=== PATIENT | male | born 1960 | race Caucasian/White ===

== ENCOUNTER 2016-07-30 13:23 | Emergency (ER) | payer MEDICAID, OTHER ==
[~2016-07-30] VITALS: Ht 162.6 cm; Wt 74.4 kg
[~2016-07-30 13:23] MED LIST: ALBU18HF2 IH; AMLO10TA2 PO; ASPI81TA2 PO; ATOR40TA PO; BLOO-697 IN; BUSP15TA3 PO; CAPS30CR TP; CARV12.52 PO; CHLO25TA2 PO; CITA40TA11 PO; CLON0.1T PO; CLOP75TA2 PO; COLC0.6C3 PO; DOCU-270 PO; DOXA2TAB2 PO; FERR325T28 GT; FURO-145 PO; FURO20TA4 PO; GABA-532 PO; GABA-534 PO; GUAI5SYR4 GT; HYDR-4076 PO; HYDR-4077 PO; INSU100V27 SQ; INSU100V7 SQ; INSU3INS6 SUBCUT; ISOS30TA6 PO; LATA2.5D2 EACHEYE; LISI40TA4 PO; LORA1TAB82 PO; LORA2TAB PO; MECL12.5 PO; NIFE30TA2 PO; SIMV20TA6 PO; ZOLP10TA6 PO
[2016-07-30 14:56] LABS: CALCIUM, SERUM 8.8 mg/dL (8.5-10.1); CREATININE 2.1 mg/dL (0.6-1.3); POTASSIUM 4.1 mmol/L (3.5-5.1)
[2016-07-30 14:59] LABS: INR 1.04 (0.87-1.13); PROTHROMBIN TIME 10.9 SECS (9.5-12.7)
[2016-07-30 15:00] LABS: BASOPHILS # (AUTO) 0.1 /CMM (0.0-0.2); BASOPHILS % (AUTO) 0.5 % (0.0-2.0); DIFF TOTAL % 100 %; EOSINOPHILS # (AUTO) 0.1 /CMM (0.0-0.7); EOSINOPHILS % (AUTO) 1.2 % (0.0-6.0); HEMATOCRIT 29 % (39-51); HEMOGLOBIN 9.6 g/dL (13.5-17.5); LYMPHOCYTES # (AUTO) 1.7 /CMM (0.8-4.8); LYMPHOCYTES % (AUTO) 16.9 % (20.0-44.0); MEAN CORPUSCULAR HEMOGLOBIN 27 PG (26.0-33.0); MEAN CORPUSCULAR HGB CONC 33 g/dl (31.0-36.0); MEAN CORPUSCULAR VOLUME 83 fL (80-96); MONOCYTES # (AUTO) 0.6 /CMM (0.1-1.30); MONOCYTES % (AUTO) 5.6 % (2.0-12.0); NEUTROPHILS # (AUTO) 7.8 /CMM (1.8-8.9); NEUTROPHILS % (AUTO) 75.8 % (43.0-81.0); PLATELET COUNT (AUTO) 242 /CMM (150-450); RED BLOOD CELL COUNT(AUTO) 3.54 MIL/uL (4.5-6.0); WHITE BLOOD COUNT (AUTO) 10.3 K/uL (4.3-11.0)
[2016-07-30 15:03] LABS: TROPONIN I 0.03 ng/mL (0.00-0.056)
[2016-07-30 15:08] LABS: ALBUMIN 3.1 g/dL (3.4-5.0); BILIRUBIN,DIRECT 0.2 mg/dL (0.0-0.2); BILIRUBIN,TOTAL 1.1 mg/dL (0.2-1.0); INDIRECT BILIRUBIN 0.9 mg/dL (0.0-1.1); TOTAL PROTEIN, SERUM 8.2 g/dL (6.4-8.2)
[2016-07-30] MEDS ORDERED: ASPI-991 PO (15:53)
[2016-07-30] MEDS ORDERED: ATOR40TA PO (15:53)
[2016-07-30] MEDS ORDERED: CARV25TA2 PO (15:53)
[2016-07-30] MEDS ORDERED: CLOP75TA2 PO (15:53)
[2016-07-30] MEDS ORDERED: INSU100V7 SQ (16:06)
[2016-07-30] MEDS ORDERED: BUPR75TA21 PO (16:10)
[2016-07-30] MEDS ORDERED: AMLODIPINE BESYLATE 5 MG TABLET PO SCH (17:00)
[2016-07-30] MEDS ORDERED: AMLODIPINE BESYLATE 5 MG TABLET ONE (17:01)
[2016-07-30 17:26] VITALS: BP 138/38
== END 2016-07-30 17:27 | disposition home or self-care (01) ==
LOC: ER 13:26 → MERGE 13:26 → UNDOADMIN 16:24 → TELE1 16:24 → UNDODISIN 20:00
DX: J90 Pleural effusion, not elsewhere classified (principal); R94.8 Abnormal results of function studies of other organs and systems; I12.0 Hypertensive chronic kidney disease with stage 5 chronic kidney disease or end stage renal disease; N18.6 End stage renal disease; E11.65 Type 2 diabetes mellitus with hyperglycemia; D64.9 Anemia, unspecified; F17.210 Nicotine dependence, cigarettes, uncomplicated
CPT/HCPCS: 36415; 71010; 80048; 80076; 82962; 83880; 84484; 85025; 85730; 87081; 93005; 99285; A4606; Z7610

== ENCOUNTER 2017-04-30 01:10 | Emergency (ER) | payer MEDICAID ==
[~2017-04-30] VITALS: Ht 160 cm; Wt 56.7 kg
[~2017-04-30 01:10] MED LIST changes: +ASPI-1152 PO; +ASPI-1169 PO; -ASPI81TA2 PO; +BUPR75TA21 PO; +CARV25TA2 PO; -CITA40TA11 PO; +CLOP75TA15 PO; -CLOP75TA2 PO; -DOXA2TAB2 PO; -ISOS30TA6 PO; +LORA-259 PO; -LORA1TAB82 PO; -NIFE30TA2 PO; -SIMV20TA6 PO
--- NOTE | 2017-04-30 01:15 | NUR ---
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 pt states that he feels as if he has water building up and his lungs again. He denies chest pain. He denies fevers or chills. pt also complains of some nausea but denies any vomiting or diarrhea. Pt aaox4 no acute distress noted, resp even and unlabored. pending er md aleman.
[2017-04-30] MEDS ORDERED: ONDANSETRON HCL/PF 4 MG/2 ML VIAL ONE (01:52)
--- NOTE | 2017-04-30 01:57 | NUR ---
PT MEDICATED BY RN PER ER MD ORDER.
[2017-04-30] MEDS ORDERED: ONDANSETRON HCL/PF 4 MG/2 ML VIAL IVP ONE (02:00)
[2017-04-30 02:02] LABS: BASOPHILS % (AUTO) 0.1 % (0.0-2.0); EOSINOPHILS % (AUTO) 0.2 % (0.0-6.0); HEMATOCRIT 29 % (39-51); HEMOGLOBIN 9.2 g/dL (13.5-17.5); LYMPHOCYTES # (AUTO) 0.6 /CMM (0.8-4.8); MEAN CORPUSCULAR HEMOGLOBIN 27 PG (26.0-33.0); MEAN CORPUSCULAR HGB CONC 32 g/dl (31.0-36.0); MEAN CORPUSCULAR VOLUME 83 fL (80-96); MONOCYTES # (AUTO) 0.5 /CMM (0.1-1.30); MONOCYTES % (AUTO) 3.4 % (2.0-12.0); NEUTROPHILS # (AUTO) 14.1 /CMM (1.8-8.9); NEUTROPHILS % (AUTO) 92.3 % (43.0-81.0); PLATELET COUNT (AUTO) 192 /CMM (150-450); RDW COEFFICIENT OF VARIATION 18.2 (11.5-15.0); RED BLOOD CELL COUNT(AUTO) 3.46 MIL/uL (4.5-6.0); WHITE BLOOD COUNT (AUTO) 15.3 K/uL (4.3-11.0)
[2017-04-30 02:14] LABS: INR 1.03 (0.87-1.13)
[2017-04-30 02:17] LABS: TROPONIN I 0.051 ng/mL (0.00-0.056)
[2017-04-30 02:22] LABS: ALANINE AMINOTRANSFERASE 33 U/L (12-78); ALBUMIN 2.7 g/dL (3.4-5.0); ALKALINE PHOSPHATASE 455 U/L (46-116); ASPARTATE AMINOTRANSFERASE 43 U/L (15-37); B-TYPE NATRIURETIC PEPTIDE 15364 PG/ML (0-125); BILIRUBIN,DIRECT 0.3 mg/dL (0.0-0.2); BILIRUBIN,TOTAL 0.7 mg/dL (0.2-1.0); CALCIUM, SERUM 8.8 mg/dL (8.5-10.1); CARBON DIOXIDE 23 mmol/L (21-32); CHLORIDE 98 mmol/L (98-107); CREATININE 3.7 mg/dL (0.6-1.3); POTASSIUM 3.7 mmol/L (3.5-5.1); SODIUM SERUM 134 mmol/L (136-145); TOTAL PROTEIN, SERUM 8.9 g/dL (6.4-8.2); UREA NITROGEN, BLOOD 63 mg/dL (7-18)
[2017-04-30 02:23] LABS: GLUCOSE 390 mg/dL (74-106)
--- NOTE | 2017-04-30 02:28 | NUR ---
REPORT CALLED TO DRAMATIC READERMARGARET MUNOZ. PENDING HOSPITAL ADMISSION.
--- NOTE | 2017-04-30 02:30 | NUR ---
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 pt states that he feels as if he has water building up and his lungs again. He denies chest pain. He denies fevers or chills. pt also complains of some nausea but denies any vomiting or diarrhea. Pt aaox4 no acute distress noted, resp even and unlabored. pending er md aleman.
--- NOTE | 2017-04-30 02:50 | NUR ---
CALLED DR. SNELL'S OFFICE, SPOKE TO CYNTHIA. TESFAYE PAGED. WAITING FOR CALL BACK.
[2017-04-30] MEDS ORDERED: LEVOFLOXACIN 750 MG /D5W 150ML PIGGYBACK IV ONE (03:00)
[2017-04-30] MEDS ORDERED: AZTREONAM 1 G in IV NS 0.9% 100 ML IV ONE (03:00)
[2017-04-30 03:14] LABS: LYMPHOCYTES % (MANUAL) 4 % (16-48); MONOCYTES % (MANUAL) 6 % (0-11.0); NEUTROPHILS % (MANUAL) 90 (42-76)
--- NOTE | 2017-04-30 03:35 | NUR ---
pt asleep no acute distress noted, resp even and unlabored. call light within reach. pt remains at bedside.
[2017-04-30] MEDS ORDERED: AZTREONAM 1 G VIAL ONE (04:51)
[2017-04-30] MEDS ORDERED: LEVOFLOXACIN 750 MG /D5W 150ML 150 ML IV ONE (04:51)
[2017-04-30] MEDS ORDERED: FUROSEMIDE 40 MG/4 ML VIAL ONE (06:47)
--- NOTE | 2017-04-30 06:51 | NUR ---
spoke to [facility] pillowcase folder regarding pt transfer. info provided as requested.
[2017-04-30] MEDS ORDERED: FUROSEMIDE 40 MG/4 ML VIAL IV ONE (07:00)
--- NOTE | 2017-04-30 07:00 | NUR ---
Ted castillo case management specialist , Kem .
--- NOTE | 2017-04-30 07:05 | NUR ---
report given to am shift jessica odom.
--- NOTE | 2017-04-30 07:21 | NUR ---
called Ted castillo home health care case manager left message.
--- NOTE | 2017-04-30 07:50 | NUR ---
SPOKE WITH ANY,[phone], FACESHEET FAXED TO [phone] REQUESTED
--- NOTE | 2017-04-30 08:36 | NUR ---
[facility]IENT ACCEPTED AT [facility] BY DR ALONSO [phone].
--- NOTE | 2017-04-30 09:05 | NUR ---
spoke with eh,waiting on a tele bed at [facility]
--- NOTE | 2017-04-30 09:36 | NUR ---
ETA 60 MINS; ROOM 219A. REPORT NUMBER [phone]
--- NOTE | 2017-04-30 09:49 | NUR ---
REPORT GIVEN TO RAVEN ROBLES FOR CONTINUITY OF CARE.
--- NOTE | 2017-04-30 09:49 | NUR ---
PER RAVEN CASHIER OFFICE ROOM WILL BE 218A
[2017-04-30 10:30] VITALS: BP 128/70
== END 2017-04-30 10:53 | disposition short-term general hospital (02) ==
LOC: ER 01:14
DX: R94.31 Abnormal electrocardiogram [ECG] [EKG] (principal); I13.0 Hypertensive heart and chronic kidney disease with heart failure and stage 1 through stage 4 chronic kidney disease, or unspecified chronic kidney disease; I50.9 Heart failure, unspecified; E11.22 Type 2 diabetes mellitus with diabetic chronic kidney disease; E11.65 Type 2 diabetes mellitus with hyperglycemia; J18.9 Pneumonia, unspecified organism; N18.9 Chronic kidney disease, unspecified; D64.9 Anemia, unspecified; F17.200 Nicotine dependence, unspecified, uncomplicated; Z79.4 Long term (current) use of insulin; Z79.82 Long term (current) use of aspirin; Z95.1 Presence of aortocoronary bypass graft
CPT/HCPCS: 36415; 71010; 80048; 80076; 82962; 83605 ×2; 83880; 84484; 85025; 85730; 87040 ×2; 87081; 93005; 96365; 96367; 96375; 99285; A4606; J1940; J1956; J2405; J3490 ×2; J7030; Z7610